=== PATIENT | female | born 1935 | race Native Hawaiian/Other Pacific Islander ===

== ENCOUNTER 2016-05-11 15:55 | Emergency (ER) | payer OTHER ==
[~2016-05-11] VITALS: Ht 165.1 cm; Wt 81.6 kg
[2016-05-11 18:43] LABS: PLATELET COUNT 213 K/uL (152-353)
[2016-05-11 18:49] LABS: POTASSIUM 3.3 mmol/L (3.6-5.2); SODIUM 132 mmol/L (136-145)
[2016-05-11 20:12] VITALS: BP 167/86; TEMP 98.2
== END 2016-05-11 20:18 | disposition home or self-care (01) ==
LOC: ED 15:55
PROVIDERS: Specialist
DX: E86.9 Volume depletion, unspecified (principal); Z72.820 Sleep deprivation; F41.8 Other specified anxiety disorders
CPT/HCPCS: 36600; 80053; 81000; 82805; 83735; 83880; 84100; 84443; 85027; 96365; 96375; 96376; 99284; J1720; J2060; J3411; J3475; J3490

== ENCOUNTER 2016-05-18 13:49 | Outpatient (CLI) | payer OTHER ==
[2016-05-18 15:35] LABS: PLATELET COUNT 205 K/uL (152-353)
[2016-05-18 15:43] LABS: POTASSIUM 3.6 mmol/L (3.6-5.2)
== END 2016-05-18 19:46 | disposition home or self-care (01) ==
LOC: LABW 13:49 → MAMMO 15:00 → LABW 19:46
PROVIDERS: Nurse Practitioner
DX: I10 Essential (primary) hypertension (principal); E55.9 Vitamin D deficiency, unspecified; R53.83 Other fatigue; E78.00 Pure hypercholesterolemia, unspecified; Z12.31 Encounter for screening mammogram for malignant neoplasm of breast
CPT/HCPCS: 36415; 80053; 80061; 82306; 82607; 84443; 85027; G0202-TC

== ENCOUNTER 2018-01-16 14:52 | Emergency (ER) | payer OTHER ==
[~2018-01-16] VITALS: Ht 167.6 cm; Wt 87.5 kg
[2018-01-16 15:00] VITALS: BP 134/58
[2018-01-16] MEDS ORDERED: VITAMIN D5000 UNIT PO (15:30)
[2018-01-16] MEDS ORDERED: CYAN10009 IM (15:31)
[2018-01-16] MEDS ORDERED: ELIQUIS5 MG PO (15:31)
[2018-01-16] MEDS ORDERED: LORA1TAB17 PO (15:32)
[2018-01-16] MEDS ORDERED: TRAMTAB2 PO (15:33)
[2018-01-16] MEDS ORDERED: NEURONTIN 100M100 MG PO (15:33)
[2018-01-16] MEDS ORDERED: LIPITOR20 MG PO (15:34)
[2018-01-16] MEDS ORDERED: ASPI325T40 PO (15:35)
[2018-01-16] MEDS ORDERED: TRIA37.541 PO (15:35)
[2018-01-16] MEDS ORDERED: DONE5TAB PO (15:35)
[2018-01-16] MEDS ORDERED: LOTENSIN HCT1 TAB PO (15:36)
[2018-01-16] MEDS ORDERED: CELEXA40 MG PO (15:36)
[2018-01-16 15:46] LABS: PLATELET COUNT 173 K/uL (152-353)
[2018-01-16 15:47] LABS: POTASSIUM 3.9 mmol/L (3.6-5.2); SODIUM 137 mmol/L (136-145)
[2018-01-18] MEDS ORDERED: VITAMIN D5000 UNIT PO (14:43)
[2018-01-20] MEDS ORDERED: CHOL100034 PO (11:30)
[2018-01-20] MEDS ORDERED: CLON0.5T36 PO (11:31)
[2018-01-20] MEDS ORDERED: GABA100C2 PO (11:32)
[2018-01-20] MEDS ORDERED: DULO30CA PO (11:32)
[2018-01-20] MEDS ORDERED: TRAZ50TA36 PO (11:33)
[2018-02-19] MEDS ORDERED: ATOR20TA2 PO (15:40)
[2018-02-19] MEDS ORDERED: ASPI325T40 PO (15:40)
[2018-02-19] MEDS ORDERED: APIX1TAB PO (15:40)
[2018-02-19] MEDS ORDERED: BUSP15TAB2 PO (15:41)
[2018-02-19] MEDS ORDERED: CETI10TA PO (15:41)
[2018-02-19] MEDS ORDERED: CHOL100034 PO (15:41)
[2018-02-19] MEDS ORDERED: DONE5TAB PO (15:42)
[2018-02-19] MEDS ORDERED: DIVA250T PO (15:42)
[2018-02-19] MEDS ORDERED: Flonase Nasal Inhale NAS (15:42)
[2018-02-19] MEDS ORDERED: ESCI10TA PO (15:42)
[2018-02-19] MEDS ORDERED: GABA100C2 PO (15:43)
[2018-02-19] MEDS ORDERED: FURO40TA93 PO (15:43)
[2018-02-19] MEDS ORDERED: GABA300C2 PO (15:44)
[2018-02-19] MEDS ORDERED: MIRALAX 17GM PAK PO (15:44)
[2018-02-19] MEDS ORDERED: MEMA5TAB PO (15:44)
[2018-02-19] MEDS ORDERED: POTA10CA3 PO (15:45)
[2018-02-19] MEDS ORDERED: QUET300T PO (15:45)
[2018-02-19] MEDS ORDERED: RISP0.25 PO (15:46)
[2018-02-19] MEDS ORDERED: TRAZ50TA36 PO (15:46)
[2018-02-19] MEDS ORDERED: TRIA37.541 PO (15:47)
[2018-02-19] MEDS ORDERED: CYAN10009 IM (15:52)
== END 2018-01-16 18:08 | disposition other institution (70) ==
LOC: ED 14:52
DX: F41.8 Other specified anxiety disorders (principal); F03.90 Unspecified dementia, unspecified severity, without behavioral disturbance, psychotic disturbance, mood disturbance, and anxiety; Z79.899 Other long term (current) drug therapy; Z04.6 Encounter for general psychiatric examination, requested by authority
CPT/HCPCS: 80053; 80307; 80320; 80329; 81000; 85027; 93005; 99285

== ENCOUNTER 2018-02-28 13:16 | Outpatient (CLI) | payer OTHER ==
[~2018-02-28 13:16] MED LIST: APIX1TAB PO; ASPI325T40 PO; ATOR20TA2 PO; BUSP15TAB2 PO; CELEXA40 MG PO; CETI10TA PO; CHOL100034 PO; CLON0.5T36 PO; CYAN10009 IM; DIVA250T PO; DONE5TAB PO; DULO30CA PO; ELIQUIS5 MG PO; ESCI10TA PO; FURO40TA93 PO; Flonase Nasal Inhale NAS; GABA100C2 PO; GABA300C2 PO; LIPITOR20 MG PO; LORA1TAB17 PO; LOTENSIN HCT1 TAB PO; MEMA5TAB PO; MIRALAX 17GM PAK PO; NEURONTIN 100M100 MG PO; POTA10CA3 PO; QUET300T PO; RISP0.25 PO; TRAMTAB2 PO; TRAZ50TA36 PO; TRIA37.541 PO; VITAMIN D5000 UNIT PO
== END 2018-02-28 22:09 | disposition home or self-care (01) ==
LOC: RAD 13:16
DX: M25.559 Pain in unspecified hip (principal); M54.5 Low back pain